=== PATIENT | female | born 1990 | race Caucasian/White ===

== ENCOUNTER → 2018-12-23 | Outpatient (CLI) | payer BC | LOC: DL.US 08:24 | PROVIDERS: ATTEND Family Medicine | DX: O26.841 Uterine size-date discrepancy, first trimester (principal); O76 Abnormality in fetal heart rate and rhythm complicating labor and delivery; O20.8 Other hemorrhage in early pregnancy; Z3A.11 11 weeks gestation of pregnancy | CPT/HCPCS: 76801 ==

== ENCOUNTER 2019-07-14 05:55 | Inpatient (IN) | payer BC ==
[2019-07-14] MEDS ORDERED: Carboprost Tromethamine 250 MCG/1 ML Amp IM PRN (06:15)
[2019-07-14] MEDS ORDERED: Sodium Chloride 0.9% 10 ML Syringe FLUSH PRN (06:15)
[2019-07-14] MEDS ORDERED: Acetaminophen 325 MG Tab PO PRN ×2 (06:15)
[2019-07-14] MEDS ORDERED: Lidocaine 1% 30 ML SDV INJECT PRN (06:15)
[2019-07-14] MEDS ORDERED: Methylergonovine 0.2 MG/1 ML Amp IM PRN (06:15)
[2019-07-14] MEDS ORDERED: Ondansetron 4 MG/2 ML SDV IV PRN (06:15)
[2019-07-14] MEDS ORDERED: Lactated Ringers 1,000 ML IV ONE (06:15)
[2019-07-14] MEDS ORDERED: Tranexamic Acid 1,000 MG in Sodium Chloride 0.9% 100 ML IV PRN (06:15)
[2019-07-14] MEDS ORDERED: Misoprostol 25 MCG (1/4 of 100 MCG) Tab VAG PRN (06:15)
[2019-07-14] MEDS ORDERED: Misoprostol 400 MCG (4 X 100 MCG TAB) RECTAL PRN (06:15)
--- NOTE | 2019-07-14 11:44 | PN ---
DATE: 07/14/2019 SUBJECTIVE: The patient is feeling contractions. OBJECTIVE: Vital Signs: Last blood pressure 151/66, heart rate 87. Genitourinary: heart tones in the 140s to 150s range. Tocometer reveals occasional contraction, none felt by patient. Vaginal exam reveals her to be 1.5 cm, 60% effaced, -2 to -3 station, vertex suspected, and Cytotec 25 mcg was placed after discussion with the patient. ASSESSMENT AND PLAN: 1. Intrauterine at 40 weeks by 6 and 1/7 weeks ultrasound, GBS negative, G2, P1-0-0-1. 2. History of asthma with gestational hypertension versus preeclampsia versus transient hypertension. We will continue to follow clinically and closely for signs and symptoms of severe preeclampsia. PIH panel will be done and follow thereafter. The patient understands and agrees with the above treatment plan. [facility] /[id number]
--- NOTE | 2019-07-14 13:44 | OBOUT ---
DATE: 07/14/2019 TIME OF NST: 6:12 to 6:32. REASON FOR NST: 1. Intrauterine at 40 weeks by 6 and 1/7 weeks ultrasound. 2. GBS negative. 3. Maternal anemia with hemoglobin of 11.3 upon admission. 4. Gestational hypertension versus preeclampsia versus transient hypertension. 5. History of asthma. 6. G2, P1-0-0-1. NST INTERPRETATION: During this time period, heart tone baseline is approximately 155 and there are at least two 15 x 15 beats per minute accelerations making this strip reactive. It is also noted to be reassuring. Tocometer reveals potential of 1 contraction not felt by the patient. Blood pressure 157/74, recheck 146/76; heart rate between 97 to 98; temperature 97.1. ASSESSMENT: 1. Nonstress test, reactive and reassuring. 2. Tocometer with 1 contraction, not felt by the patient. PLAN: Please see H and P, which was done through [employer]. Please see chart to be scanned, updated sticker was placed. CONCERNS: New diagnosis includes transient hypertension versus gestational hypertension versus preeclampsia and just recent recheck of blood pressure is 151/66 with a heart rate of 87. We will do PIH panel. The patient currently denies any headaches, visual changes, or upper abdominal pain. For her H and P, records were called for, reviewed, and supplemented by the patient's history as well as review of systems remarkable for a mild cold, mild swelling in the feet. No contractions, spotting, bleeding, leaking, headaches, visual changes, or upper abdominal pain. Otherwise, review of systems fully reviewed and felt to be noncontributory. [facility] /[id number]
[2019-07-14] MEDS: Lactated Ringers 1,000 ML IV SCH ×2 (13:49→23:25)
[2019-07-14] MEDS: Oxytocin/Normal Saline 30 UNIT/500 ML BAG IV SCH (13:50)
[2019-07-14] MEDS ORDERED: fentaNYL 100 MCG/2 ML SDV IVPUSH PRN (21:21)
[2019-07-14] MEDS ORDERED: Nalbuphine 10 MG/1 ML Vial IM PRN (21:22)
[2019-07-14] MEDS ORDERED: Sodium Bicarbonate 4.2% 2.5 MEQ/5 ML SDV ONE (23:21)
[2019-07-14] MEDS ORDERED: EPINEPHrine 1 MG/1 ML Amp ONE (23:21)
[2019-07-14] MEDS ORDERED: fentaNYL 100 MCG/2 ML SDV ONE (23:21)
--- NOTE | 2019-07-14 23:48 | PCM.SN ---
- Free Text/Narrative Note: Intrathecal. Sitting position, sterile prep and drape. 15 mg lidocaine w bicarb for skinwheal to L2 L3 interspace x 2, introducer and 24 ga pencan x 2. pos CSF , neg heme, neg parasthesia. 0.1 ml pf 1:1000 epi, 15 mcg pf sufenta, 35 mcg pf fentanyl, 0.4 ml pf ns and 6 mg of 0.75% pf bupivacaine injected after CSF aspiration. Pt to L lateral position. Procedure time 2320 to 2350
[2019-07-15] MEDS ORDERED: Famotidine 20 MG/2 ML SDV IVPUSH ONE (00:06)
[2019-07-15] MEDS ORDERED: Oxytocin 10 Units/1 ML SDV IM PRN (00:45)
[2019-07-15] MEDS ORDERED: Sodium Chloride 0.9% 10 ML Syringe FLUSH PRN (00:45)
[2019-07-15] MEDS ORDERED: Simethicone 80 MG Tab.Chew PO PRN (00:45)
[2019-07-15] MEDS ORDERED: Benzocaine/Menthol 20%-0.5% Spray 56 GM Canister TOP PRN (00:45)
[2019-07-15] MEDS ORDERED: Zolpidem 5 MG Tab PO PRN (00:45)
[2019-07-15] MEDS ORDERED: Promethazine 25 MG/ML SDV IM STA (01:54)
[2019-07-15] MEDS: Oxytocin/Normal Saline 30 UNIT/500 ML BAG IV SCH (03:20)
[2019-07-15] MEDS: Lactated Ringers 1,000 ML IV SCH (03:26)
[2019-07-15] MEDS: Ibuprofen 800 MG Tab PO PRN ×2 (06:19→19:22)
--- NOTE | 2019-07-15 09:51 | PN ---
DATE: 07/14/2019 SUBJECTIVE: The patient's contractions are getting stronger. She is on Pitocin 6 milliunits per minute. Was unable to receive her second dose of Cytotec today because of her contraction pattern. Last blood pressure 143/78. The patient denies any headaches, visual changes, or upper abdominal pain. Preeclampsia labs came back negative for preeclampsia. heart tones 140s to 150s with accelerations in the 160s to 170s range. Tocometer reveals contractions every 1- 1/2 to 2 minutes. Vaginal exam reveals her to be 60% to 70% effaced, 2 cm dilated, vertex suspected, and bag of water felt. She has had a 0 station at this point in time. ASSESSMENT AND PLAN: Intrauterine at 40 weeks by 6-1/7 weeks' ultrasound, now status post Cytotec x1 and currently on Pitocin augmentation with some cervical change. We will continue to follow clinically and closely. The patient understands and agrees with the above treatment plan. We will follow for any signs or symptoms of severe preeclampsia as well. [facility] /[id number]
--- NOTE | 2019-07-15 10:00 | DEL ---
DATE: 07/15/2019 PREOPERATIVE DIAGNOSES: 1. Intrauterine at 40-1/7 weeks by 6-1/7 week ultrasound. 2. Group B Streptococcus negative. 3. Maternal anemia with hemoglobin 11.3 upon admission. 4. Gestational hypertension with preeclampsia ruled out. 5. History of asthma. 6. 2, para 1-0-0-1. POSTOPERATIVE DIAGNOSES: 1. Intrauterine at 40-1/7 weeks by 6-1/7 week ultrasound-delivered. 2. Group B Streptococcus negative. 3. Maternal anemia with hemoglobin 11.3 upon admission. 4. Gestational hypertension with preeclampsia ruled out. 5. History of asthma. 6. 2, para 1-0-0-1. 7. First-degree perineal laceration that was bleeding requiring repair. PROCEDURE PERFORMED: On 07/14/2019, NST followed by Cytotec x1, Pitocin augmentation on 07/15/2019, artificial rupture membranes, intrauterine pressure catheter placement, and spontaneous vaginal delivery with first-degree perineal laceration, repaired. ANESTHESIA/ANALGESIA: The patient did receive nitrous oxide in the first stage of labor as well as an intrathecal. ESTIMATED BLOOD LOSS: 200 mL. FINDINGS: Male. score and weight pending. SUMMARY OF EVENTS: The patient is a G2, P1-0-0-1 intrauterine at 40 weeks on date of admission, underwent NST followed by Cytotec x1 and then Pitocin augmentation. She slowly progressed with cervical dilation. She was found to be 4+ cm, wanting something for pain and received an intrathecal. Thereafter, she became very nauseated and was followed closely. She did receive a dose of Pepcid as well as another dose of Zofran. During that time period, she was evaluated and found to have rapid dilation to 7 cm and then 8 cm. I was called to the room as there were concerns with some decelerations. Repositioning and oxygen were done with minimal improvement. Therefore, she was evaluated and found to be complete and the patient started pushing with contractions. With approximately 2 to 3 contractions with pushing, vertex was delivered in JOSEPH presentation followed by anterior and posterior shoulder without difficulty, and the rest of the infant was delivered. Mouth and nares were suctioned. Cord was doubly clamped and cut, and infant was resuscitated on mother's abdomen. Approximately 10 mL of cord blood was obtained for labs. Placenta was then delivered with gentle cord traction and fundal massage within 5 to 10 minutes. Perineum, vagina, and perirectal areas were then examined and noted to have a first-degree perineal laceration that was bleeding. This was subsequently repaired in the usual fashion using 3-0 Vicryl with good anesthetic result from her intrathecal. Mother and infant are currently stable at the time of dictation. [facility] /[id number]
--- NOTE | 2019-07-15 10:31 | OBOUT ---
DATE: 07/15/2019 SUBJECTIVE: The patient is now status post intrathecal. She is feeling comfortable, but is nauseated. OBJECTIVE: O2 sats 97%. heart tones in the 120s to 130s range with what appears to be early decelerations, but tocometer has poor readings. Vaginal exam reveals her to be 6 to 7 cm. Artificial rupture of membranes done after discussion with the patient. IUPC placed for further monitoring of contractions after discussion with the patient. Copious amounts of fluid were obtained with some bloody show noted. IUPC was placed without difficulty and tested with cough with a spike noted. Pitocin has been stopped due to the concerns with heart tones, and her nausea has been managed with GENERATOR OPERATOR [employer]. ASSESSMENT: Intrauterine , now at 40-1/7 weeks by 6-1/7 week ultrasound. Group B Streptococcus negative. Gestational hypertension. 2, para 1-0-0-1 with history of asthma, now nearing the second stage of labor with rapid cervical dilation noted to be 4 cm, approximately an hour to an hour a half ago and now at 6 to 7 cm with artificial rupture of membranes and intrauterine pressure catheter placed for further monitoring. PLAN: We will continue to follow clinically and closely at this point in time. Plans were discussed with the patient. She understands and agrees. [facility] /[id number]
[2019-07-15] MEDS: Ferrous Sulfate 325 MG Tab PO SCH (10:38)
[2019-07-15] MEDS: Prenatal Multivitamin with Calcium/Folic Acid/Iron Tab PO SCH (10:45)
[2019-07-15] MEDS: Docusate Sodium 100 MG Cap PO PRN (10:45)
[2019-07-15] MEDS ORDERED: guaiFENesin 100 MG/5 ML Soln 5 ML UD Cup PO PRN ×2 (19:31→19:39)
[2019-07-16] MEDS: Ferrous Sulfate 325 MG Tab PO SCH (08:06)
[2019-07-16] MEDS: Docusate Sodium 100 MG Cap PO PRN (08:07)
[2019-07-16] MEDS: Prenatal Multivitamin with Calcium/Folic Acid/Iron Tab PO SCH (08:07)
[2019-07-16 08:44] VITALS: BP 140/84; PULSE 88
[2019-07-16] MEDS ORDERED: fentaNYL 100 MCG/2 ML SDV ITHECAL ONE (09:29)
[2019-07-16] MEDS ORDERED: Sodium Bicarbonate 4.2% 2.5 MEQ/5 ML SDV ONE (09:29)
--- NOTE | 2019-07-16 15:38 | DISCH ---
ADMITTING DIAGNOSES: 1. Intrauterine at 40 weeks' gestation based on 6-week ultrasound. 2. Group B strep negative. 3. Anemia of , hemoglobin 11.3 on admission. 4. Gestational hypertension. 5. History of asthma. 6. 2, para 1-0-0-1. DISCHARGE DIAGNOSES: 1. Intrauterine at 40 weeks' gestation based on 6-week ultrasound. 2. Group B strep negative. 3. Anemia of , hemoglobin 11.3 on admission. 4. Gestational hypertension. 5. History of asthma. 6. 2, now para 2-0-0-2, delivered at 40-1/7 weeks' gestation. 7. Status post spontaneous vaginal delivery with first-degree laceration repair. PROCEDURES PERFORMED: 1. Induction of labor with Cytotec and Pitocin. 2. Artificial rupture of membranes. 3. Intrauterine pressure catheter monitoring. 4. Intrathecal anesthesia. 5. Spontaneous vaginal delivery. 6. First-degree laceration repair. BRIEF HISTORY: A 28-year-old female with the above-listed diagnoses, brought into the hospital on her due date for elective induction of labor at term, found to have some elevated blood pressures, and PIH labs ultimately negative. Protein-creatinine ratio of 0.07. Delivery itself was slow initial progress, but went well overall. She was complete and had an uncomplicated vaginal delivery. See delivery note for full details. She had a term male infant weighing 3610 g, scores of 8 and 9. DISCHARGE CONDITION: Good. The patient is meeting discharge criteria, ambulating, tolerating regular diet. No chest pain or shortness of breath. Bleeding has been controlled, and she has no other concerns. PHYSICAL EXAMINATION: Vital Signs: Temperature is 98.4, pulse 88, blood pressure 140/84, respiratory rate of 16, O2 saturations 99% on room air. Previous blood pressure was 135/81. Heart: Regular without obvious murmur. Lungs: Clear to auscultation bilaterally. Abdomen: Soft and nontender. Fundus is firm and below the umbilicus. Extremities: Trace edema. No erythema or tenderness noted. LABORATORY DATA: Admission hemoglobin 11.3, discharge 11.0; hematocrit 34.1, discharge 33; platelets 247, discharge 233. PIH labs were negative, specifically protein-creatinine ratio of 0.07. DISPOSITION: Home with family. MEDICATIONS: 1. Ibuprofen 800 mg every 8 hours as needed for pain. 2. Tylenol 650 mg every 6 hours as needed for pain. 3. Iron 325 mg twice daily. 4. Colace 100 mg p.o. twice daily as needed for constipation. 5. vitamin, continue 1 daily. DISCHARGE INSTRUCTIONS: The patient has a blood pressure cuff at home and will continue to monitor her blood pressures. They are minimally elevated, and I expect them to resolve over the next few days, and she can recheck them in the office on Thursday when she brings her baby in to see Dr. Holland. She also is educated on signs and symptoms of preeclampsia and that this can occur even in the time-period. So if she needs to be evaluated for symptoms or if her blood pressures are getting higher, specifically higher than 150/95, that she should come back in for re-evaluation, and the patient is agreeable to that and her questions have been answered. Otherwise, she has also been provided with routine post vaginal delivery cares and all of her questions were answered. [facility] /[id number]
== END 2019-07-16 09:30 | disposition home or self-care (01) | DRG 560 ==
LOC: DL.OBCHECK 05:55 → DL.OB 06:16 → OBSVTOIN 07-15 01:20
PROVIDERS: ADMIT Family Medicine; ATTEND Family Medicine
PROC: 10E0XZZ Delivery of Products of Conception, External Approach (ICD-10-PCS; principal; 2019-07-15)
PROC: 10907ZC Drainage of Amniotic Fluid, Therapeutic from Products of Conception, Via Natural or Artificial Opening (ICD-10-PCS; 2019-07-15)
PROC: 10H07YZ Insertion of Other Device into Products of Conception, Via Natural or Artificial Opening (ICD-10-PCS; 2019-07-15)
PROC: 0HQ9XZZ Repair Perineum Skin, External Approach (ICD-10-PCS; 2019-07-15)
DX: O48.0 Post-term pregnancy (principal); Z37.0 Single live birth; O99.02 Anemia complicating childbirth; D64.9 Anemia, unspecified; O70.0 First degree perineal laceration during delivery; Z3A.40 40 weeks gestation of pregnancy
CPT/HCPCS: 36415; 51701; 59409; 81003; 82565; 82570; 83615; 84156; 84450; 84460; 84520; 84550; 85027; A9270-GY; J2405; J2590; J3490; J7120

== ENCOUNTER 2019-07-19 11:21 | Emergency (ER) | payer BC ==
[2019-07-19 11:32] VITALS: BP 143/90; PULSE 104
[2019-07-19] MEDS ORDERED: Sodium Chloride 0.9% 1,000 ML IV ONE (11:45)
[2019-07-19 12:24] LABS: CHLORIDE,CL 103 mmol/L (101-111); SODIUM,NA 136 mmol/L (135-145)
--- NOTE | 2019-07-19 12:33 | EDM.PDOC ---
Scribed by Ninfa Benítez 07/19/19 1233 for Abner Beard PA ED HPI GENERAL MEDICAL PROBLEM - General Chief Complaint: Abdominal Pain Stated Complaint: ABDOMINAL PAIN Time Seen by Provider: 07/19/19 11:45 Source of Information: Reports: Patient, RN, RN Notes Reviewed History Limitations: Reports: No Limitations - History of Present Illness INITIAL COMMENTS - FREE TEXT/NARRATIVE: Patient is a 28-year-old female who reports with lower abdominal "cramping pain ". The patient reports her pain started this A.M. at 10:00. The patient has an appointment at the clinic at 13:00, but thought the pain was too bad, so came to ED. Patient had a vaginal on 07/15/19 and shaikh had some cramping since. The patient reports she took one 200mg Ibuprofen but still shaikh cramping. Onset: Today Duration: Getting Worse Location: Reports: Abdomen Quality: Reports: Ache Severity: Mild Improves with: Reports: None Worsens with: Reports: None Associated Symptoms: Reports: No Other Symptoms Treatments INTERNAL SALESPERSON: Reports: Acetaminophen Suprapubic Pain Score (Numeric/FACES): 9 - Related Data Allergies Allergy/AdvReac Type Severity Reaction Status Date / Time No Known Allergies Allergy Verified 07/14/19 09:25 Home Meds: Home Meds Ferrous Sulfate 325 mg PO BID 07/14/19 [History] Vit/FA/Fe Fumarate/Se [ MTR] 1 tab PO DAILY 07/14/19 [History] Acetaminophen [Tylenol] 650 mg PO Q4H PRN tablet 07/16/19 [Rx] Docusate Sodium [Colace] 100 mg PO BID PRN cap 07/16/19 [Rx] Ibuprofen [Motrin] 800 mg PO Q8H PRN tablet 07/16/19 [Rx] Past Medical History HEENT History: Reports: None Cardiovascular History: Reports: None Respiratory History: Reports: Asthma Gastrointestinal History: Reports: Other (See Below) Other Gastrointestinal History: ulcer Genitourinary History: Reports: None 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: Musculoskeletal History: Reports: None Neurological History: Reports: None Psychiatric History: Reports: None Endocrine/Metabolic History: Reports: None Hematologic History: Reports: Anemia Immunologic History: Reports: None Oncologic (Cancer) History: Reports: None Dermatologic History: Reports: None - Infectious Disease History Infectious Disease History: Reports: None - Past Surgical History Head Surgeries/Procedures: Reports: None Social & Family History - Family History Family Medical History: Noncontributory - Tobacco Use Smoking Status *Q: Never Smoker Second Hand Smoke Exposure: No - Caffeine Use Caffeine Use: Reports: None - Recreational Drug Use Recreational Drug Use: No - Living Situation & Occupation Living situation: Reports: with Family Occupation: Employed ED ROS GENERAL - Review of Systems Review Of Systems: Comprehensive ROS is negative, except as noted in HPI. ED EXAM, GI/ABD - Physical Exam Exam: See Below Exam Limited By: No Limitations General Appearance: Alert, WD/WN, No Apparent Distress Eyes: Bilateral: Normal Appearance Ears: Normal External Exam, Normal Canal, Hearing Grossly Normal, Normal TMs Nose: Normal Inspection, Normal Mucosa, No Blood Throat/Mouth: Normal Inspection, Normal Lips, Normal Teeth, Normal Gums, Normal Oropharynx, Normal Voice, No Airway Compromise Head: Atraumatic, Normocephalic Neck: Normal Inspection, Supple, Non-Tender, Full Range of Motion Respiratory/Chest: No Respiratory Distress, Lungs Clear, Normal Breath Sounds, No Accessory Muscle Use, Chest Non-Tender Cardiovascular: Normal Peripheral Pulses, Regular Rate, Rhythm, No Edema, No Gallop, No JVD, No Murmur, No Rub GI/Abdominal Exam: Other (lower abdominal tenderness) (Female) Exam: Deferred Rectal (Female) Exam: Deferred Back Exam: Normal Inspection, Full Range of Motion, NT Extremities: Normal Inspection, Normal Range of Motion, Non-Tender, Normal Capillary Refill, No Pedal Edema Neurological: Alert, Oriented, CN II-XII Intact, Normal Cognition, Normal Gait, Normal Reflexes, No Motor/Sensory Deficits Psychiatric: Normal Affect, Normal Mood Skin Exam: Warm, Dry, Intact, Normal Color, No Rash Lymphatic: No Adenopathy Course - Vital Signs Last Recorded V/S: Last Vital Signs Temp 36.3 C 07/19/19 11:30 Pulse 104 H 07/19/19 11:30 Resp 18 07/19/19 11:30 BP 143/90 H 07/19/19 11:30 Pulse Ox 97 07/19/19 11:30 - Orders/Labs/Meds Orders: Active Orders 24 hr Category Date Time Status UA RFX TASNEEM AND CULT IF INDIC [URIN] Stat Lab 07/19/19 11:26 Ordered Sodium Chloride 0.9% [Normal Saline] 1,000 ml Med 07/19/19 11:45 Ordered IV .BOLUS Medication Orders Sodium Chloride (Normal Saline) 1,000 mls @ 999 mls/hr IV .BOLUS ONE Stop: 07/19/19 12:45 Last Admin: 07/19/19 12:00 Dose: 999 mls/hr Labs: Laboratory Tests 07/19/19 07/19/19 Range/Units 11:54 11:54 WBC 10.1 H (5.0-10.0) 10^3/uL RBC 4.11 L (4.2-5.4) 10^6/uL Hgb 11.8 L (12.0-16.0) g/dL Hct 35.3 L (37.0-47.0) % MCV 85.9 (80-100) fL MCH 28.7 (27.0-34.0) pg MCHC 33.4 (33.0-35.0) g/dL Plt Count 332 D (150-450) 10^3/uL Neut % (Auto) 76.8 H (42.2-75.2) % Lymph % (Auto) 14.5 L (20.5-50.1) % Mcculloch % (Auto) 6.2 (2-8) % Eos % (Auto) 2.2 (1.0-3.0) % Baso % (Auto) 0.3 (0.0-1.0) % Sodium 136 (135-145) mmol/L Potassium 4.0 (3.6-5.0) mmol/L Chloride 103 (101-111) mmol/L Carbon Dioxide 21.0 (21.0-31.0) mmol/L Anion Gap 16.0 BUN 11 (7-18) mg/dL Creatinine 0.7 (0.6-1.3) mg/dL Est Cr Clr Drug Dosing 93.79 mL/min Estimated GFR (MDRD) > 60 BUN/Creatinine Ratio 15.71 Glucose 90 (74-105) mg/dL Calcium 8.7 (8.4-10.2) mg/dl Total Bilirubin 0.8 (0.2-1.0) mg/dL AST 27 (10-42) IU/L ALT 32 (10-60) IU/L Alkaline Phosphatase 114 (42-121) IU/L Total Protein 7.1 (6.7-8.2) g/dl Albumin 3.1 L (3.2-5.5) g/dl Globulin 4.0 Albumin/Globulin Ratio 0.78 Meds: Medications Generic Name Dose Route Start Last Admin Trade Name Nilson PRN Reason Stop Dose Admin Sodium Chloride 1,000 mls @ 999 mls/hr 07/19/19 11:45 07/19/19 12:00 Normal Saline IV 07/19/19 12:45 999 mls/hr .BOLUS ONE Administration Departure - Departure Time of Disposition: 12:30 Disposition: Home, Self-Care 01 Condition: Fair Clinical Impression: Abdominal cramping - Discharge Information *PRESCRIPTION DRUG MONITORING PROGRAM REVIEWED*: Not Applicable *COPY OF PRESCRIPTION DRUG MONITORING REPORT IN PATIENT SELENA: Not Applicable Forms: ED Department Discharge Care Plan Goals: The patient was advised of the examination and lab results during the visit. The patient was advised to take Tylenol (650 mg) every 8 hours as needed for pain. The patient was encouraged to rest and relax. If the patient has any additional symptoms or concerns, the patient should either return to the emergency department or visit her primary care facility. Sepsis Event Note - Evaluation Sepsis Screening Result: No Definite Risk - Focused Exam Vital Signs: Vital Signs Temp Pulse Resp BP Pulse Ox 07/19/19 11:30 36.3 C 104 H 18 143/90 H 97 Date Exam was Performed: 07/19/19 Time Exam was Performed: 12:30 - My Orders Last 24 Hours: My Active Orders 07/19/19 11:26 UA RFX TASNEEM AND CULT IF INDIC [URIN] Stat 07/19/19 11:45 Sodium Chloride 0.9% [Normal Saline] 1,000 ml IV .BOLUS - Assessment/Plan Last 24 Hours: My Active Orders 07/19/19 11:26 UA RFX TASNEEM AND CULT IF INDIC [URIN] Stat 07/19/19 11:45 Sodium Chloride 0.9% [Normal Saline] 1,000 ml IV .BOLUS I have read and agree with the documentation that has been completed regarding this visit. By signing this record, I attest that the documentation was completed in my physical presence and is an accurate record of the encounter.
== END 2019-07-19 12:44 | disposition home or self-care (01) ==
LOC: DL.ED 11:21
DX: R10.30 Lower abdominal pain, unspecified (principal); J45.909 Unspecified asthma, uncomplicated; Z79.899 Other long term (current) drug therapy
CPT/HCPCS: 36415; 74019; 80053; 81001; 85025; 87086; 87088; 87186; 96360; 99284; J7030

== ENCOUNTER 2020-01-27 12:56 | Emergency (ER) | payer BC ==
[2020-01-27 13:05] VITALS: BP 157/78; PULSE 136
[2020-01-27] MEDS ORDERED: Ketorolac 30 MG/ML SDV IM ONE (13:16)
--- NOTE | 2020-01-27 13:23 | EDM.PDOC ---
ED HPI GENERAL MEDICAL PROBLEM - General Chief Complaint: Abdominal Pain Stated Complaint: PAIN IN LOWER BOTTOM Time Seen by Provider: 01/27/20 13:10 Source of Information: Reports: Patient, RN History Limitations: Reports: No Limitations - History of Present Illness INITIAL COMMENTS - FREE TEXT/NARRATIVE: 29 year old female who presents to the ER with complains of menstrual cramps. Patient reports her menses began two days ago with cramping which have gradually worsened. She has not tried anything for the pain. She reports cramping of an 8/10. She states bleeding have subsided. She denies any fever/chills or urinary symptoms. Onset Date: 01/25/20 Duration: Day(s): Location: Reports: Abdomen Quality: Reports: Other (camping) Improves with: Reports: None Lower Abdominal Pain Score (Numeric/FACES): 9 - Related Data Allergies Allergy/AdvReac Type Severity Reaction Status Date / Time No Known Allergies Allergy Verified 01/27/20 13:08 Home Meds: Home Meds Ferrous Sulfate 325 mg PO BID 07/14/19 [History] Vit/FA/Fe Fumarate/Se [ MTR] 1 tab PO DAILY 07/14/19 [History] Acetaminophen [Tylenol] 650 mg PO Q4H PRN tablet 07/16/19 [Rx] Docusate Sodium [Colace] 100 mg PO BID PRN cap 07/16/19 [Rx] Ibuprofen [Motrin] 800 mg PO Q8H PRN tablet 07/16/19 [Rx] Levonorgestrel/Ethin.estradiol [Lillow-28 Tablet] 1 tab PO DAILY 01/27/20 [History] Past Medical History HEENT History: Reports: None Cardiovascular History: Reports: None Respiratory History: Reports: Asthma Gastrointestinal History: Reports: Other (See Below) Other Gastrointestinal History: ulcer Genitourinary History: Reports: None MEDICARE INTERVIEWER History: Reports: Musculoskeletal History: Reports: None Neurological History: Reports: None Psychiatric History: Reports: None Endocrine/Metabolic History: Reports: None Hematologic History: Reports: Anemia Immunologic History: Reports: None Oncologic (Cancer) History: Reports: None Dermatologic History: Reports: None - Infectious Disease History Infectious Disease History: Reports: Chicken Pox - Past Surgical History Head Surgeries/Procedures: Reports: None Social & Family History - Family History Family Medical History: Noncontributory - Tobacco Use Smoking Status *Q: Never Smoker Second Hand Smoke Exposure: No - Caffeine Use Caffeine Use: Reports: None - Recreational Drug Use Recreational Drug Use: No - Living Situation & Occupation Living situation: Reports: with Family Occupation: Employed ED ROS GENERAL - Review of Systems Review Of Systems: Comprehensive ROS is negative, except as noted in HPI. ED EXAM, GI/ABD - Physical Exam Exam: See Below Exam Limited By: No Limitations General Appearance: Alert, Moderate Distress Respiratory/Chest: No Respiratory Distress, Lungs Clear, Normal Breath Sounds, No Accessory Muscle Use, Chest Non-Tender Cardiovascular: Normal Peripheral Pulses, Regular Rate, Rhythm GI/Abdominal Exam: Normal Bowel Sounds, Soft, No Organomegaly, No Distention, Tender (mild suprapubic tenderness) (Female) Exam: Deferred Rectal (Female) Exam: Deferred Back Exam: Normal Inspection, Full Range of Motion. No: CVA Tenderness (L), CVA Tenderness (R) Neurological: Alert, Oriented, CN II-XII Intact, Normal Cognition, Normal Gait, Normal Reflexes, No Motor/Sensory Deficits Psychiatric: Normal Affect, Normal Mood Skin Exam: Warm, Dry, Intact, Normal Color, No Rash Lymphatic: No Adenopathy Course - Vital Signs Last Recorded V/S: Last Vital Signs Temp 97.8 F 01/27/20 13:04 Pulse 136 H 01/27/20 13:04 Resp 20 01/27/20 13:04 BP 157/78 H 01/27/20 13:04 Pulse Ox 100 01/27/20 13:04 - Orders/Labs/Meds Meds: Medications Discontinued Medications Generic Name Dose Route Start Last Admin Trade Name Nilson PRN Reason Stop Dose Admin Ketorolac Tromethamine 30 mg 01/27/20 13:16 Toradol IM 01/27/20 13:17 ONETIME ONE - Re-Assessments/Exams Free Text/Narrative Re-Assessment/Exam: Reviewed exam findings with patient. Toradol 30 mg IM administered with significant relief in symptoms. Rx for Toradol 10 mg PO # 5 send home with patient. Encouraged to push fluids and follow up with PCP. Departure - Departure Time of Disposition: 13:59 Disposition: Home, Self-Care 01 Condition: Good Clinical Impression: Menstrual cramps - Discharge Information Instructions: Dysmenorrhea Additional Instructions: Take Toradol 10 mg every 8 hours as needed for discomfort. Push fluids and rest. Follow up with PCP Sepsis Event Note (ED) - Evaluation Sepsis Screening Result: No Definite Risk - Focused Exam Vital Signs: Vital Signs Temp Pulse Resp BP Pulse Ox 01/27/20 13:04 97.8 F 136 H 20 157/78 H 100
== END 2020-01-27 14:09 | disposition home or self-care (01) ==
LOC: DL.ED 12:56
DX: N94.6 Dysmenorrhea, unspecified (principal); J45.909 Unspecified asthma, uncomplicated
CPT/HCPCS: 96372; 99283; J1885